=== PATIENT | male | born 1990 | race Caucasian/White ===

== ENCOUNTER → 2016-05-21 | Outpatient (CLI) | payer OTHER | LOC: C.LAB 13:09 | DX: Z02.83 Encounter for blood-alcohol and blood-drug test (principal) ==

== ENCOUNTER 2016-08-28 07:21 | Inpatient (IN) | payer OTHER ==
[~2016-08-28] VITALS: Ht 180.3 cm; Wt 75.0 kg
[2016-08-28] MEDS ORDERED: SODIUM CHLORIDE 0.9% 1000ML 1,000 ML IV STA (07:32)
--- NOTE | 2016-08-28 07:52 | DIAGNOSTIC IMAGING REPORT ---
CHEST ONE VIEW PORTABLE HISTORY: Overdose COMPARISON: Chest 03/03/2016. FINDINGS: The lungs are clear. Cardiac silhouette is normal in size. No pleural effusions. No pneumothorax. IMPRESSION: No acute process. Electronically signed by: Chris Mendiola M.D. 08/28/2016 7:51 AM Dictated Date/Time: 08/28/2016 7:50 AM
[2016-08-28 08:10] LABS: BASO % 0.2 %; BASO ABS # 0.01 K/uL (0-0.2); COMPLETE YES; EOS % 1.3 %; HEMATOCRIT 44.1 % (42-52); IG% 0.2 %; LYMPH % 29.3 %; LYMPH ABS # 1.39 K/uL (1.2-3.4); MEAN CELL VOLUME 85.8 fL (80-100); MEAN CORPUSCULAR HEMOGLOBIN 30.2 pg (25-34); MEAN CORPUSCULAR HGB CONC 35.1 g/dl (32-36); MEAN PLATELET VOLUME 9.8 fL (7.4-10.4); MONO % 9.5 %; NEUT % 59.5 %; PLATELET COUNT 214 K/uL (130-400); RED BLOOD COUNT 5.14 M/uL (4.7-6.1); WHITE BLOOD COUNT 4.74 K/uL (4.8-10.8)
[2016-08-28 09:01] LABS: INR 1.1 (0.9-1.1); PROTHROMBIN TIME (PATIENT) 11.3 SECONDS (9.0-12.0)
[2016-08-28 09:14] LABS: BUN/CREATININE RATIO 13.5 (10-20); POTASSIUM 3.5 mmol/L (3.5-5.1)
[2016-08-28 09:16] LABS: ACETAMINOPHEN 20 ug/ml (10-30)
[2016-08-28] MEDS ORDERED: ONDANSETRON INJ 2 MG/ML 2 ML VIAL IV PRN (09:45)
--- NOTE | 2016-08-28 10:15 | History and Physical ---
History & Physical Date & Time of Service: August 28, 2016 at 09:55 Chief Complaint: AMS Primary Care Physician: No Doctor, Assigned History of Present Illness Source: partner 26 y/o M distant Hx of IVDU, depression. 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 His father had apparently been residing with him over the past several days and had brought a few bottles of prescription medications including opiates and benzodiazepines. It is reported by the pts partner that he ingested a large quantity of both beginning at around 5am. We do not know exact amounts. His partner alerted EMS and he was transported to the ER. He is somnolent although his respiratory status is adequate and he has not required Narcan as of yet. He is unable to provide any pertinent information. The above is provided by his partner at bedside at the time of admission. 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 Does not drink alcohol Histroy of IVDU 3 years prior Current drug use history not clear Smoke one pack cigarettes daily Smoking Status: Current Every Day Smoker Alcohol Use: none Drug Use: none Marital Status: single Housing status: lives with family, other Occupational Status: employed Multi-Drug Resistant Organisms History of MDRO: No Allergies Coded Allergies: No Known Allergies (Unverified , 03/28/15) Home Medications Unable to Obtain Active Prescriptions or Reported Meds Review of Systems Could not obtain form pt who is somnolent at the time of admission Physical Exam Vital Signs Date Time Temp Pulse Resp B/P Pulse Ox O2 Delivery O2 Flow Rate FiO2 08/28/16 09:54 69 08/28/16 09:30 72 18 113/59 93 Room Air 08/28/16 09:00 74 21 107/58 93 08/28/16 08:30 77 12 117/60 91 08/28/16 08:09 94 Room Air 08/28/16 08:09 94 Room Air 08/28/16 08:00 87 14 128/71 94 08/28/16 07:30 94 15 95 08/28/16 07:27 95 08/28/16 07:21 36.5 94 20 112/68 95 Room Air General Appearance: + pertinent finding (Somnolent young male - no visible distress) Head: normocephalic, atraumatic, + pertinent finding (Cut on L ear) ENT: + pertinent finding (Small laceration on L ear) Neck: supple, no adenopathy, thyroid normal, no JVD Respiratory/Chest: chest non-tender, lungs clear, normal breath sounds, no respiratory distress, no accessory muscle use Cardiovascular: regular rate, rhythm, no edema, no gallop, no JVD, no murmur, normal peripheral pulses Abdomen/GI: normal bowel sounds, non tender, soft Back: normal inspection, no CVA tenderness Extremities/Musculoskelatal: normal inspection, no calf tenderness, normal capillary refill, no pedal edema, normal range of motion Neurologic/Psych: + pertinent finding (Responds to sternal rub - wakes up occasionally - pupils equal/reactive - no overt motor defecits - spontaneous movement present) Skin: normal color, + pertinent finding (Several small lacerations and abrasion over upper and lower extremities - there are no needle martinez or areas consistent with IV or subQ drug administration) Diagnostics Laboratory Results Results Past 24 Hours Test 08/28/16 07:35 08/28/16 08:35 08/28/16 09:22 Range/Units White Blood Count 4.74 4.8-10.8 K/uL Red Blood Count 5.14 4.7-6.1 M/uL Hemoglobin 15.5 14.0-18.0 g/dL Hematocrit 44.1 42-52 % Mean Corpuscular Volume 85.8 80-100 fL Mean Corpuscular Hemoglobin 30.2 25-34 pg Mean Corpuscular Hemoglobin Concent 35.1 32-36 g/dl Platelet Count 214 130-400 K/uL Mean Platelet Volume 9.8 7.4-10.4 fL Neutrophils (%) (Auto) 59.5 % Lymphocytes (%) (Auto) 29.3 % Monocytes (%) (Auto) 9.5 % Eosinophils (%) (Auto) 1.3 % Basophils (%) (Auto) 0.2 % Neutrophils # (Auto) 2.82 1.4-6.5 K/uL Lymphocytes # (Auto) 1.39 1.2-3.4 K/uL Monocytes # (Auto) 0.45 0.11-0.59 K/uL Eosinophils # (Auto) 0.06 0-0.5 K/uL Basophils # (Auto) 0.01 0-0.2 K/uL RDW Standard Deviation 40.1 36.4-46.3 fL RDW Coefficient of Variation 12.6 11.5-14.5 % Immature Granulocyte % (Auto) 0.2 % Immature Granulocyte # (Auto) 0.01 0.00-0.02 K/uL Prothrombin Time 11.3 9.0-12.0 SECONDS Prothromb Time International Ratio 1.1 0.9-1.1 Activated Partial Thromboplast Time 25.5 21.0-31.0 SECONDS Partial Thromboplastin Ratio 1.0 Sodium Level 144 136-145 mmol/L Potassium Level 3.5 3.5-5.1 mmol/L Chloride Level 109 98-107 mmol/L Carbon Dioxide Level 29 21-32 mmol/L Anion Gap 6.0 3-11 mmol/L Blood Urea Nitrogen 13 7-18 mg/dl Creatinine 1.00 0.60-1.40 mg/dl Est Creatinine Clear Calc Drug Dose 114.0 ml/min Estimated GFR () 121.6 Estimated GFR (Non- 104.9 BUN/Creatinine Ratio 13.5 10-20 Random Glucose 91 70-99 mg/dl Calcium Level 9.0 8.5-10.1 mg/dl Total Bilirubin 0.6 0.2-1 mg/dl Direct Bilirubin 0.2 0-0.2 mg/dl Aspartate Amino Transf (AST/SGOT) 18 15-37 U/L Alanine Aminotransferase (ALT/SGPT) 30 12-78 U/L Alkaline Phosphatase 63 45-117 U/L Total Creatine Kinase 226 39-308 U/L Total Protein 7.2 6.4-8.2 gm/dl Albumin 4.3 3.4-5.0 gm/dl Lipase 63 73-393 U/L Salicylates Level < 1.7 2.8-20 mg/dl Acetaminophen Level 20 10-30 ug/ml Ethyl Alcohol mg/dL < 3.0 0-3 mg/dl Impression Assessment and Plan 26 y/o M distant Hx of IVDU, depression. 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 His father had apparently been residing with him over the past several days and had brought a few bottles of prescription medications including opiates and benzodiazepines. It is reported by the pts partner that he ingested a large quantity of both beginning at around 5am. We do not know exact amounts. His partner alerted EMS and he was transported to the ER. He is somnolent although his respiratory status is adequate and he has not required Narcan as of yet. Pt is admitted for telemetry monitoring. We will provide aggressive hydration and Narcan if needed. He will be kept on 1 to 1 observation pending evaluation by Mental Health. If the pt is awake and alert he can likely be transferred to the psychiatry service as there are no outstanding medical issues that we can discern. Smoking cessation advice can be provided prior to D/C although he likely has more pressing issues to address. Full code - Heparin prophylaxis Total time for this admit including review of labs, meds, records - discussion with ER attending and pts partner - 35 min Level of Care Telemetry Resuscitation Status FULL RESUSCITATION VTE Prophylaxis VTE Risk Assessment Done? Y/N: Yes Risk Level: Very Low Given or contraindicated: Unfractionated heparin SQ
--- NOTE | 2016-08-28 11:11 | EMERGENCY ROOM VISIT NOTE ---
History Report prepared by Robin: Betty Monzon Under the Supervision of: Dr. Ozzy Eddy D.O. 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 The patient's history is limited secondary to altered mental status. The patient was brought to the ED via [employer]. The police report that the patient's girlfriend called them this morning about the patient so they went to pick him up. The police state that the patient did not vocalize any suicidal or homicidal ideations to them. The patient states that he took 7 1 mg Xanax at 1700 last night. Nursing staff also report that he mentioned maybe taking 2 Vicodin last night as well. The patient denies any alcohol use. He denies headaches, chest pain, shortness of breath, nausea, vomiting, and diarrhea. The patient states that he found out yesterday that his girlfriend has been cheating on him for months. He states that he took the pills to get "messed up" and try to forget about the situation. He states that he was not trying to kill himself. The patient denies any significant medical problems. The patient was evaluated in the ED for altered mental status in February secondary to a medication overdose. 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 ROS limited secondary to altered mental status. Past Medical & Surgical Medical Problems: (1) Chronic back pain (2) Suicidal intent Family History Sciatica Social History Smoking Status: Unknown if Ever Smoked Alcohol Use: none Drug Use: none Marital Status: single Housing Status: lives with family Occupation Status: employed Current/Historical Medications Unable to Obtain Active Prescriptions or Reported Meds Allergies Coded Allergies: No Known Allergies (Unverified , 03/28/15) Physical Exam Vital Signs Date Time Temp Pulse Resp B/P Pulse Ox O2 Delivery O2 Flow Rate FiO2 08/28/16 10:53 64 12 112/51 94 Room Air 08/28/16 09:54 69 08/28/16 09:30 72 18 113/59 93 Room Air 08/28/16 09:00 74 21 107/58 93 08/28/16 08:30 77 12 117/60 91 08/28/16 08:09 94 Room Air 08/28/16 08:09 94 Room Air 08/28/16 08:00 87 14 128/71 94 08/28/16 07:30 94 15 95 08/28/16 07:27 95 08/28/16 07:21 36.5 94 20 112/68 95 Room Air Physical Exam GENERAL: alert, sitting up in bed, disheveled, appears intoxicated, well appearing, well nourished, no distress, non-toxic EYE EXAM: pupils pinpoint with normal conjunctiva, PERRL OROPHARYNX: no exudate, no erythema, lips, buccal mucosa, and tongue normal and mucous membranes are moist NECK: supple, no nuchal rigidity, no adenopathy, non-tender LUNGS: Clear to auscultation. Normal chest wall mechanics HEART: no murmurs, S1 normal and S2 normal ABDOMEN: abdomen soft, non-tender, normo-active bowel sounds, no masses, no rebound or guarding. BACK: Back is symmetrical on inspection and there is no deformity, no midline tenderness, no CVA tenderness. SKIN: old abrasions to bilateral hands, no rashes, and no bruising UPPER EXTREMITIES: full active and passive range of motion without tenderness. LOWER EXTREMITIES: full active and passive range of motion without tenderness. NEURO EXAM: Sleeping, awakens to voice with slurred speech, oriented to person, place, and time, no focal deficits. Medical Decision & Procedures ER Provider Diagnostic Interpretation: Radiology results as stated below per my review and the radiologist's interpretation: CHEST ONE VIEW PORTABLE FINDINGS: The lungs are clear. Cardiac silhouette is normal in size. No pleural effusions. No pneumothorax. IMPRESSION: No acute process. Electronically signed by: Chris Medniola M.D. 08/28/2016 7:51 AM Dictated Date/Time: 08/28/2016 7:50 AM Laboratory Results 08/28/16 07:35 Red Blood Count 5.14, Mean Corpuscular Volume 85.8, Mean Corpuscular Hemoglobin 30.2, Mean Corpuscular Hemoglobin Concent 35.1, Mean Platelet Volume 9.8, Neutrophils (%) (Auto) 59.5, Lymphocytes (%) (Auto) 29.3, Monocytes (%) (Auto) 9.5, Eosinophils (%) (Auto) 1.3, Basophils (%) (Auto) 0.2, Neutrophils # (Auto) 2.82, Lymphocytes # (Auto) 1.39, Monocytes # (Auto) 0.45, Eosinophils # (Auto) 0.06, Basophils # (Auto) 0.01 08/28/16 08:35 Test 08/28/16 07:35 08/28/16 08:35 08/28/16 09:22 White Blood Count 4.74 K/uL (4.8-10.8) Red Blood Count 5.14 M/uL (4.7-6.1) Hemoglobin 15.5 g/dL (14.0-18.0) Hematocrit 44.1 % (42-52) Mean Corpuscular Volume 85.8 fL (80-100) Mean Corpuscular Hemoglobin 30.2 pg (25-34) Mean Corpuscular Hemoglobin Concent 35.1 g/dl (32-36) Platelet Count 214 K/uL (130-400) Mean Platelet Volume 9.8 fL (7.4-10.4) Neutrophils (%) (Auto) 59.5 % Lymphocytes (%) (Auto) 29.3 % Monocytes (%) (Auto) 9.5 % Eosinophils (%) (Auto) 1.3 % Basophils (%) (Auto) 0.2 % Neutrophils # (Auto) 2.82 K/uL (1.4-6.5) Lymphocytes # (Auto) 1.39 K/uL (1.2-3.4) Monocytes # (Auto) 0.45 K/uL (0.11-0.59) Eosinophils # (Auto) 0.06 K/uL (0-0.5) Basophils # (Auto) 0.01 K/uL (0-0.2) RDW Standard Deviation 40.1 fL (36.4-46.3) RDW Coefficient of Variation 12.6 % (11.5-14.5) Immature Granulocyte % (Auto) 0.2 % Immature Granulocyte # (Auto) 0.01 K/uL (0.00-0.02) Prothrombin Time 11.3 SECONDS (9.0-12.0) Prothromb Time International Ratio 1.1 (0.9-1.1) Activated Partial Thromboplast Time 25.5 SECONDS (21.0-31.0) Partial Thromboplastin Ratio 1.0 Anion Gap 6.0 mmol/L (3-11) Est Creatinine Clear Calc Drug Dose 114.0 ml/min Estimated GFR () 121.6 Estimated GFR (Non- 104.9 BUN/Creatinine Ratio 13.5 (10-20) Calcium Level 9.0 mg/dl (8.5-10.1) Total Bilirubin 0.6 mg/dl (0.2-1) Direct Bilirubin 0.2 mg/dl (0-0.2) Aspartate Amino Transf (AST/SGOT) 18 U/L (15-37) Alanine Aminotransferase (ALT/SGPT) 30 U/L (12-78) Alkaline Phosphatase 63 U/L (45-117) Total Creatine Kinase 226 U/L (39-308) Total Protein 7.2 gm/dl (6.4-8.2) Albumin 4.3 gm/dl (3.4-5.0) Lipase 63 U/L (73-393) Salicylates Level < 1.7 mg/dl (2.8-20) Ethyl Alcohol mg/dL < 3.0 mg/dl (0-3) Acetaminophen Level 17 ug/ml (10-30) Laboratory results per my review. Medications Administered Medications (Trade) Dose Ordered Sig/Kevan Route Start Time Stop Time Status Last Admin Dose Admin Sodium Chloride (Nss 1000ml) 1,000 ml @ 999 mls/hr Q1H1M STAT IV 08/28/16 07:32 08/28/16 08:32 DC 08/28/16 08:00 999 MLS/HR ECG Indication: altered mental status, toxicologic Rate (beats per minute): 80 Rhythm: sinus rhythm Findings: no ectopy, other (normal axis) ED Course ED COURSE: Vital signs were reviewed and showed normal. The patients medical record was reviewed The above diagnostic studies were performed and reviewed. ED treatments and interventions as stated above. 0726: The patient was evaluated in room A10. A complete history and physical examination was performed. 0732: Ordered Sodium Chloride 1000 ml @ 999 mls/hr IV 0859: I talked to the patient's girlfriend upon her arrival to the ED. She reported that the patient made suicidal statements and said he was going to overdose. She stated that the patient got his father's medications and took them just before 5 AM. 919: I discussed the patient's case with Poison Control. They are in agreement with the current plan. 923: Upon reevaluation, the patient is resting comfortably.I was unable to discuss my findings with the patient secondary to intoxication. Based on the patients age, coexisting illnesses, exam and lab findings the decision to treat as an inpatient was made. The patient remained stable while under my care. The patient will be evaluated for further management. 926: I reviewed the patient's case with Dr. Kateryna PAULINO. He will evaluate the patient for further management. Medical Decision Differential diagnoses includes but is not limited to toxicologic, infection, hypoglycemia, electrolyte abnormalities, cardiac sources, intracerebral event, neurologic. Patient is a 26-year-old male who presents the ER following an overdose on lorazepam/Xanax and possibly Vicodin. Significant other notes that he took these medications around 5 AM this morning. She notes that last night he was stating that he wanted to kill himself and by overdose. He eventually got hold of the medications which are his father's. Patient denies any suicidal ideations. He is visibly intoxicated able to open his eyes slightly to sternal rub and state the year and location. Vitals are stable. CBC along with BMP, LFTs and bilirubin were unremarkable. Alcohol was negative. Tylenol was 20 and repeated at 4 hours was 17. Salicylates was negative. I did not elect to reverse the benzos as I am not sure of his chronic usage. 302 was petitioned by his significant other. Patient was admitted to internal medicine for medical clearance and will eventually need psychiatric evaluation. Consults Time Called: [phone] Consulting Physician: Poison Control Returned Call: -- I discussed the patient's case with Poison Control. They are in agreement with the current plan. Additional Consults: Time Called: 923 Consulted Physician: Dr. Kateryna PAULINO Returned Call: [phone] Additional Comments: I reviewed the patient's case with Dr. Kateryna PAULINO. He will evaluate the patient for further management. Impression Primary Impression: Drug overdose, intentional Additional Impression: Suicide attempt Scribe Attestation The scribe's documentation has been prepared under my direction and personally reviewed by me in its entirety. I confirm that the note above accurately reflects all work, treatment, procedures, and medical decision making performed by me. Departure Information Dispostion Being Evaluated By Hospitalist Prescriptions Unable to Obtain Active Prescriptions or Reported Meds Referrals No Doctor, Assigned (PCP) Patient Instructions My [facility] Problem Qualifiers Primary Impression: Drug overdose, intentional Encounter type: initial encounter Qualified Codes: T50.902A - Poisoning by unspecified drugs, medicaments and biological substances, intentional self-harm , initial encounter
[2016-08-28 11:53] VITALS: BP 114/68; PULSE 70; TEMP 36.5; O2SAT 96; Ht 180.3 cm; Wt 75.0 kg
[2016-08-28 12:00] VITALS: PULSE 70; O2SAT 96
[2016-08-28] MEDS: D5NSS + 20MEQ KCL 1,000 ML IV SCH ×2 (12:30→19:56)
--- NOTE | 2016-08-28 13:42 | Psychiatric Consultation ---
Psychiatric Consultation Date of Service: August 28, 2016. Received request for consult on 26 yo male for depression with suicide attempt by OD. Nursing reports that he is somnolent and unable to participate in interview at this time. Will attempt to see in the AM. He should not be allowed to sign out AMA without being seen by psychiatry in view of OD.
[2016-08-28] MEDS: HEPARIN SOD 5000 UNIT/0.5 ML CARP SQ SCH ×2 (14:16→22:24)
[2016-08-28 14:56] VITALS: BP 96/60; PULSE 63; TEMP 36.4; O2SAT 98
[2016-08-28 16:00] VITALS: PULSE 59; O2SAT 96
[2016-08-28 19:14] VITALS: BP 112/76; PULSE 63; TEMP 36.5; O2SAT 99
[2016-08-28 23:41] VITALS: BP 119/77; PULSE 62; TEMP 36.4; O2SAT 98
[2016-08-29 03:58] VITALS: BP 130/74; PULSE 82; TEMP 37; O2SAT 98
[2016-08-29] MEDS: HEPARIN SOD 5000 UNIT/0.5 ML CARP SQ SCH (06:00)
[2016-08-29 07:40] VITALS: BP 151/70; PULSE 93; TEMP 37.1; O2SAT 95
[2016-08-29 07:43] LABS: URINE APPEARANCE CLOUDY (CLEAR); URINE BILIRUBIN NEG (NEG); URINE COLOR DK YELLOW; URINE EPITHELIAL CELL AUTO 0-5 /lpf (0-5); URINE NITRITE NEG (NEG); UROBILINOGEN NEG (NEG)
[2016-08-29 07:44] LABS: MANUAL MICROSCOPIC REQUIRED? NO; REVIEW REQ? NO
[2016-08-29 08:08] LABS: BENZODIAZEPINE, URINE POS (NEG); COCAINE,URINE NEG (NEG); PHENCYCLIDINE, URINE NEG (NEG)
--- NOTE | 2016-08-29 09:37 | Discharge Instructions ---
Discharge Instructions Date of Service August 29, 2016. Admission Reason for Admission: Suicidal Intent Discharge Discharge Diagnosis / Problem: Suicidal Attempt via Overdose Discharge Goals Goal(s): Decrease discomfort, Improve function, Increase independence, Improve disease control, Therapeutic intervention, Screening Activity Recommendations Activity Limitations: per Instructions/Follow-up section Lifting Limitations: gradually increase as tolerated Exercise/Sports Limitations: gradually increase as tolerated May Resume Sexual Activity: when tolerated Shower/Bathe: no limitations Driving or Machine Use: no limitations . Instructions / Follow-Up Instructions / Follow-Up You were admitted to [facility] with suicidal attempt and overdose on multiple medications. During your stay here you were treated with intravenous fluids, respiratory support and other supportive measures. Imaging studies which were completed include CXR, and were normal. You are being discharged to the inpatient psychiatric floor for continued care and support. Counseling is strongly recommended, and you should continue this as an outpatient. Seek out help if you feel suicidal or homicidal! DO NOT USE ALCOHOL OR DRUGS! Current Hospital Diet Patient's current hospital diet: Discharge Diet Recommended Diet: Regular Diet Pending Studies Studies pending at discharge: no Medical Emergencies . Who to Call and When: Medical Emergencies: If at any time you feel your situation is an emergency, please call 911 immediately. . Non-Emergent Contact Non-Emergency issues call your: Primary Care Provider Call Non-Emergent contact if: you have a fever, temperature is above 100.5, you have any medication questions . . "Provider Documentation" section prepared by Annette Awan. . VTE Core Measure Inpt VTE Proph given/why not?: Unfractionated heparin SQ
--- NOTE | 2016-08-29 09:44 | Discharge Summary ---
Discharge Summary Date of Service August 29, 2016. Discharge Summary Admission Date: August 28, 2016 at 09:43 Discharge Date: August 29, 2016 Discharge Disposition: Acute care mental health Principal Diagnosis: Suicidal Attempt via overdose Procedures: CXR 1 view 08/28/16 IMPRESSION: No acute process. Consultations: Psychiatry Discharge Exam The patient was seen and examined this morning. Pt reports he is not well and does not want to be in the hospital. 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 He obtained drugs including xanax, percocets and others which he cannot recall from his father as he was recently involved in a large drug bust. Pt denies any acute medical complaints. 10 point ROS was obtained and is negative. The patient would not allow me to do a physical exam. Physical Exam: General Appearance: WD/WN, no apparent distress Eyes: PERRL, EOMI ENT: hearing grossly normal, + pertinent finding (mucous membranes are dry) Respiratory/Chest: no respiratory distress, no accessory muscle use Extremities: normal inspection, + pertinent finding Neurologic/Psychiatric: alert, oriented x 3, + depressed affect, + pertinent finding (tearful at times throughout exam) Skin: normal color, warm/dry Hospital Course Total Time Spent: Greater than 30 minutes This includes examination of the patient, discharge planning, medication reconciliation, and communication with other providers. Discharge Instructions Please refer to the electronic Patient Visit Report (Discharge Instructions) for additional information. Follow-Up Follow up with your Primary Care Provider within 1 week after discharge from psychiatric floor. Follow up with psychiatry within 1 week after discharge from the inpatient floor. Follow up with outpatient counseling on a weekly or bi-weekly basis.
[2016-08-29 10:56] VITALS: BP 149/70; PULSE 104; TEMP 36.3; O2SAT 96
--- NOTE | 2016-08-29 12:05 | Psychiatric Consultation ---
Consultation Date of Consultation August 29, 2016. Identifying Data Irving Ramirez is a 26-year-old male who was brought to the emergency room after taking them polydrug overdose in a suicide attempt after finding out his girlfriend, and mother of his 2 children, was having an affair. Information is gathered from the electronic medical record and only limited information obtained from the patient. Chief Complaint "My girlfriend is f---ing some other beverley". History of Present Illness Hugo Donahue is a 26-year-old male who found out that his girlfriend and mother of his 2 young children, has been having an affair. Apparently yesterday he caught her dropping him off. He became acutely distressed, and took an overdose of an unknown quantity of pills. In the ER yesterday he said he took 71 mg Klonopin and several Vicodin. Today he remains somewhat somnolent and under the influence. He is difficult to wake at the time of my interview, however was all awake and alert for the doctors interview earlier and for the nurses. He does say that he took the medications in a suicide attempt, wanting to . He feels frustrated at being in the hospital because he now feels he has to take care of his children. He reported yesterday to our liaison nurse, that his children are at home with the girlfriend who has marijuana plants in the house. A child and youth services report was completed. Other stressors include the fact that his father, who is reported to have been living with him, was arrested 3 days ago on felony charges of selling drugs. He is reportedly going to [facility]. The patient says today "I'm the one who will have to take care of all of the fallout". He is not very talkative, does not want to elaborate on the stress with his father and essentially refuses to answer other questions. He does not want to be hospitalized at this time despite his admission of suicide attempt. Since admission, he has attempted to leave the hospital twice and security had to be called. Last night a 30 to warrant was issued to keep him in the hospital until he is medically cleared. He has been seen by the primary team, Annette TONEY and Dr. Casey who have cleared him medically for transfer to the mental health unit. Past Psychiatric History Current OP Treatment: no current treatment Prior OP Treatment: no prior treatment Prior Psych Hospitalizations: none Access to a Gun: No Suicide Attempts: No Past Medication Trials None Past Medical/Surgical History History of Concussion/Seizure: No (1) Chronic back pain Allergies Allergies: Coded Allergies: No Known Allergies (Unverified , 03/28/15) Home Medications Unable to Obtain Active Prescriptions or Reported Meds Family History Sciatica History of Suicide: No History of Substance Abuse: Yes (father with felony drug charges) Psychiatric History: No Alcohol Use Alcohol Use In Past 12 Months: No (he denies but will require follow-up) Smoking Use Smoking Status: Current Every Day Smoker Substance History Chart indicates history of IV drug use. 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 Currently on probation for a DUI) Psychological Trauma History: Other (unknown at this time) Review of Systems Constitutional: other (somnolent and difficult to arouse) Eyes: denies: as stated in HPI, blurred vision, discharge, double vision, eye pain, itching, no symptoms, other, photophobia, redness, tearing, visual changes ENT: denies: dental pain, ear discharge, ear pain, epistaxis, gum swelling, loss of hearing, mouth pain, mouth swelling, nasal congestion, nasal pain, no symptoms reported, other, rhinorrhea, see HPI, sore throat, stidor, throat swelling, tinnitus Cardiovascular: denies: chest pain, chest pressure, chest tightness, diaphoresis, no symptoms reported, other, palpitations, see HPI, syncope Respiratory: denies: BORJAS, PND, cough, cyanosis, no symptoms reported, orthopnea , other, see HPI, short of breath, sputum production, stridor, wheezing Gastrointestinal: denies no symptoms reported, denies see HPI, denies abdominal pain, denies constipation, denies diarrhea, denies nausea, denies vomiting, denies other Genitourinary - Male: denies: amenorrhea, impotence, no symptoms, other, penile discharge, penile itching, rash, see HPI, testicular pain, testicular swelling Musculoskeletal: denies no symptoms reported, denies see HPI, denies back pain , denies gout, denies joint pain, denies joint swelling, denies muscle pain, denies muscle stiffness, denies neck pain, denies other Integumentary: denies no symptoms reported, denies see HPI, denies change in color, denies change in hair/nails, denies dryness, denies lesions, denies lumps , denies rash, denies other Neurologic: denies: dizziness, focal weakness, general weakness, headache, lethargy, memory loss, no symptoms, numbness, other, paresthesias, pre-existing deficit, see HPI, seizure, tics, tingling, tremors, vertigo Endocrine: denies: as stated in HPI, cold intolerance, goiter, hair changes, heat intolerance, no symptoms, other, polydipsia, polyuria, skin changes Hematologic / Lymphatic: denies: abnormal clotting, adenopathy, anemia, as stated in HPI, easy bleeding, easy bruising, gums bleeding, no symptoms, other, petechiae Examination Physical Examination As per Annette TONEY Vital Signs Vital Signs Past 12 Hours Date Time Temp Pulse Resp B/P Pulse Ox O2 Delivery O2 Flow Rate FiO2 08/29/16 10:56 36.3 104 19 149/70 96 Room Air 08/29/16 07:40 37.1 93 22 151/70 95 Room Air 08/29/16 04:00 Room Air 08/29/16 03:58 37.0 82 16 130/74 98 Room Air 08/29/16 00:07 Room Air Laboratory Results Last 24 Hours Test 08/29/16 07:30 Urine Color DK YELLOW Urine Appearance CLOUDY Urine pH 5.0 Urine Specific [place] 1.020 Urine Protein NEG Urine Glucose (UA) NEG Urine Ketones 1+ Urine Occult Blood NEG Urine Nitrite NEG Urine Bilirubin NEG Urine Urobilinogen NEG Urine Leukocyte Esterase NEG Urine WBC (Auto) 1-5 /hpf Urine RBC (Auto) 0-4 /hpf Urine Hyaline Casts (Auto) 1-5 /lpf Urine Epithelial Cells (Auto) 0-5 /lpf Urine Bacteria (Auto) NEG Urine Opiates Screen POS Urine Methadone, Qualitative NEG Urine Barbiturates NEG Urine Phencyclidine (PCP) Level NEG Ur Amphetamine/Methamphetamine POS MDMA (Ecstasy) Screen NEG Urine Benzodiazepines Screen POS Urine Cocaine Metabolite NEG Urine Marijuana (THC) POS Mental Examination During interview pt is: uncooperative, other (sedimentation rate it) Appearance: disheveled Eye contact is: poor Motor behavior is: no abnormal motor movements Speech: other (tired sounding, minimal) Affect: irritable (and tired) Mood is: depressed, irritable Thought process: goal directed Thought content: reality based without delusions Suicidal thought are: present, Plan: present, Intent: present (polydrug overdose) Homicidal thoughts are: denied Hallucinations: denies auditory, denies visual Intelligence estimated to be: consistent with level of education Insight: impaired Judgement: impaired Impression / Recommendations Impression 26-year-old gentleman admitted to the medical floor status post polydrug overdose. A 30 to warrant was issued last night due to patient's attempts to leave. Today he clearly admits that this was a suicide attempt, wanting to after finding out his girlfriend is having an affair. He does not want to be in the hospital and so we will proceed with a 302 for inpatient mental health treatment. I have spoken with Annette TONEY who will alert Dr. Casey of the need to complete the physician's portion of the 302 after the can help worker has been here. If we have a bed at the time this is completed we will admit him to our unit Inventory Assets Strengths: Love of his children Risk Factors Assessment Male: Yes : Yes /single/: No Higher / Fall in social status: No Access to guns: No Health problems: No Mental Health Diagnoses: No Substance use disorders: Yes Previous attempt: No Previous psychiatric stay: No Protective Factors Assessment Episcopalian beliefs: No : No Responsible for young children: Yes Employed: Yes Stable relationships: No Supportive family: No Recommendations (1) Unspecified mood [affective] disorder 08/29 -In view of his admission that it was a suicide attempt and his unpredictable behavior, we will recommend inpatient mental health treatment on a 302 involuntary basis. -Our liaison nurse will initiate the process and have can help come in to evaluate -The patient remains somewhat somnolent today and so will defer starting medications until he is less somnolent -We will except the patient on our unit upon completion of the 302 pending bed availability (2) polysubstance use 08/29 -There is conflicting information about patient's history with substances, which will need to be clarified when he is more alert. Has been reviewed with Dr. Varghese
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
[2016-08-29 15:17] VITALS: BP 116/64; PULSE 81; TEMP 36.8; O2SAT 97
[2016-08-29 15:52] VITALS: BP 116/64; PULSE 81; TEMP 36.8; O2SAT 97
[2016-08-31 22:17] LABS: COD UR NEGATIVE NG/ML (CUTOFF=50); HYDROCOD UR 9460 NG/ML (CUTOFF=50); HYDROMOR UR 476 NG/ML (CUTOFF=50); HYDROXYETHYLFLURAZEPAM CONF NEGATIVE NG/ML (CUTOFF=50); HYDROXYMIDAZOLAM NEGATIVE NG/ML (CUTOFF=50); HYDROXYTRIAZOLAM CONF NEGATIVE NG/ML (CUTOFF=50); MORPHINE UR NEGATIVE NG/ML (CUTOFF=50); NORHYDROCODONE CONF UR 17500 NG/ML (CUTOFF=50); OXYMORPH UR NEGATIVE NG/ML (CUTOFF=50); TEMAZEPAM CONF 251 NG/ML (CUTOFF=50)
== END 2016-08-29 17:21 | DRG 885 ==
LOC: ENRESERVDT → ENRESERVTM → EDBD 07:21 → C.EDA 07:22 → C.2T 09:43 → EDBEDREQ 10:21
PROVIDERS: ADMIT Internal Medicine; ATTEND Internal Medicine
DX: F39 Unspecified mood [affective] disorder (principal); T42.4X2A Poisoning by benzodiazepines, intentional self-harm, initial encounter; T40.602A Poisoning by unspecified narcotics, intentional self-harm, initial encounter; F17.210 Nicotine dependence, cigarettes, uncomplicated; F19.10 Other psychoactive substance abuse, uncomplicated; Z87.39 Personal history of other diseases of the musculoskeletal system and connective tissue; Z86.59 Personal history of other mental and behavioral disorders

== ENCOUNTER 2016-10-11 23:04 | Emergency (ER) | payer OTHER ==
[~2016-10-11] VITALS: Ht 175.3 cm; Wt 73.0 kg
[2016-10-11 23:12] VITALS: TEMP 36.7; Ht 175.3 cm; Wt 73.0 kg
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
[2016-10-12 00:12] VITALS: BP 133/67; PULSE 98; O2SAT 95
--- NOTE | 2016-10-12 06:47 | DIAGNOSTIC IMAGING REPORT ---
LEFT FOOT MIN 3 VIEWS ROUTINE CLINICAL HISTORY: left foot injury trauma. Pain. COMPARISON: None. DISCUSSION: The bones and joint spaces appear intact. There is no evidence of fracture, dislocation or bony disease. There is no evidence for soft tissue swelling. IMPRESSION: Negative study. Electronically signed by: Vicente Harper M.D. 10/12/2016 6:46 AM Dictated Date/Time: 10/12/2016 6:45 AM
== END 2016-10-12 00:14 | disposition home or self-care (01) ==
LOC: C.EDB 23:05
DX: S99.922A Unspecified injury of left foot, initial encounter (principal); W22.8XXA Striking against or struck by other objects, initial encounter; M54.9 Dorsalgia, unspecified; G89.29 Other chronic pain